=== PATIENT | male | born 1950 | race Caucasian/White ===

== ENCOUNTER → 2017-12-20 | Outpatient (CLI) | payer OTHER | END | disposition home or self-care (01) | LOC: WOUNDCARE 09:38 | DX: I87.313 Chronic venous hypertension (idiopathic) with ulcer of bilateral lower extremity (principal); L97.911 Non-pressure chronic ulcer of unspecified part of right lower leg limited to breakdown of skin; L97.522 Non-pressure chronic ulcer of other part of left foot with fat layer exposed; L97.218 Non-pressure chronic ulcer of right calf with other specified severity; J44.9 Chronic obstructive pulmonary disease, unspecified; Z87.891 Personal history of nicotine dependence; Z85.46 Personal history of malignant neoplasm of prostate ==

== ENCOUNTER → 2017-12-27 | Outpatient (CLI) | payer OTHER | END | disposition home or self-care (01) | LOC: WOUNDCARE 02:47 | DX: I87.313 Chronic venous hypertension (idiopathic) with ulcer of bilateral lower extremity (principal); L97.218 Non-pressure chronic ulcer of right calf with other specified severity; L97.528 Non-pressure chronic ulcer of other part of left foot with other specified severity; J44.9 Chronic obstructive pulmonary disease, unspecified; Z85.46 Personal history of malignant neoplasm of prostate; Z87.891 Personal history of nicotine dependence ==

== ENCOUNTER → 2018-01-10 | Outpatient (CLI) | payer OTHER | END | disposition home or self-care (01) | LOC: WOUNDCARE 01:28 | DX: I87.313 Chronic venous hypertension (idiopathic) with ulcer of bilateral lower extremity (principal); L97.211 Non-pressure chronic ulcer of right calf limited to breakdown of skin; L97.521 Non-pressure chronic ulcer of other part of left foot limited to breakdown of skin; J44.9 Chronic obstructive pulmonary disease, unspecified; Z85.46 Personal history of malignant neoplasm of prostate; Z87.891 Personal history of nicotine dependence ==

== ENCOUNTER → 2018-01-17 | Outpatient (CLI) | payer OTHER | END | disposition home or self-care (01) | LOC: WOUNDCARE 04:27 | DX: I87.313 Chronic venous hypertension (idiopathic) with ulcer of bilateral lower extremity (principal); L97.521 Non-pressure chronic ulcer of other part of left foot limited to breakdown of skin; L97.211 Non-pressure chronic ulcer of right calf limited to breakdown of skin; J44.9 Chronic obstructive pulmonary disease, unspecified; Z85.46 Personal history of malignant neoplasm of prostate; Z87.891 Personal history of nicotine dependence ==

== ENCOUNTER → 2018-01-24 | Outpatient (CLI) | payer OTHER | END | disposition home or self-care (01) | LOC: WOUNDCARE 03:19 | DX: I87.313 Chronic venous hypertension (idiopathic) with ulcer of bilateral lower extremity (principal); L97.218 Non-pressure chronic ulcer of right calf with other specified severity; L97.528 Non-pressure chronic ulcer of other part of left foot with other specified severity; J44.9 Chronic obstructive pulmonary disease, unspecified; Z85.46 Personal history of malignant neoplasm of prostate; Z87.891 Personal history of nicotine dependence ==

== ENCOUNTER → 2018-02-01 | Outpatient (CLI) | payer OTHER | END | disposition home or self-care (01) | LOC: WOUNDCARE 02:21 | DX: I87.313 Chronic venous hypertension (idiopathic) with ulcer of bilateral lower extremity (principal); L97.211 Non-pressure chronic ulcer of right calf limited to breakdown of skin; L97.528 Non-pressure chronic ulcer of other part of left foot with other specified severity; J44.9 Chronic obstructive pulmonary disease, unspecified; Z87.891 Personal history of nicotine dependence; Z85.46 Personal history of malignant neoplasm of prostate ==

== ENCOUNTER → 2018-02-15 | Outpatient (CLI) | payer OTHER | END | disposition home or self-care (01) | LOC: WOUNDCARE 01:46 | DX: I87.313 Chronic venous hypertension (idiopathic) with ulcer of bilateral lower extremity (principal); L97.811 Non-pressure chronic ulcer of other part of right lower leg limited to breakdown of skin; L97.528 Non-pressure chronic ulcer of other part of left foot with other specified severity; J44.9 Chronic obstructive pulmonary disease, unspecified; Z87.891 Personal history of nicotine dependence; Z85.46 Personal history of malignant neoplasm of prostate ==

== ENCOUNTER → 2018-02-22 | Outpatient (CLI) | payer OTHER | END | disposition home or self-care (01) | LOC: WOUNDCARE 05:05 | DX: I87.313 Chronic venous hypertension (idiopathic) with ulcer of bilateral lower extremity (principal); L97.211 Non-pressure chronic ulcer of right calf limited to breakdown of skin; L97.528 Non-pressure chronic ulcer of other part of left foot with other specified severity; J44.9 Chronic obstructive pulmonary disease, unspecified; Z85.46 Personal history of malignant neoplasm of prostate; Z87.891 Personal history of nicotine dependence ==

== ENCOUNTER → 2018-02-27 | Outpatient (CLI) | payer OTHER | END | disposition home or self-care (01) | LOC: WOUNDCARE 00:37 | DX: I87.313 Chronic venous hypertension (idiopathic) with ulcer of bilateral lower extremity (principal); L97.211 Non-pressure chronic ulcer of right calf limited to breakdown of skin; L97.528 Non-pressure chronic ulcer of other part of left foot with other specified severity; J44.9 Chronic obstructive pulmonary disease, unspecified; Z87.891 Personal history of nicotine dependence ==

== ENCOUNTER → 2018-03-06 | Outpatient (CLI) | payer OTHER | END | disposition home or self-care (01) | LOC: WOUNDCARE 02:29 | DX: I87.313 Chronic venous hypertension (idiopathic) with ulcer of bilateral lower extremity (principal); L97.218 Non-pressure chronic ulcer of right calf with other specified severity; L97.528 Non-pressure chronic ulcer of other part of left foot with other specified severity; J44.9 Chronic obstructive pulmonary disease, unspecified; Z85.46 Personal history of malignant neoplasm of prostate; Z87.891 Personal history of nicotine dependence ==

== ENCOUNTER → 2018-03-14 | Outpatient (CLI) | payer OTHER ==
[~2018-03-14] MED LIST: PREDNISONE20 M1 PO; VIBRAMYCIN100 MG PO
== END | disposition home or self-care (01) ==
LOC: WOUNDCARE 02:04
DX: I87.313 Chronic venous hypertension (idiopathic) with ulcer of bilateral lower extremity (principal); L97.218 Non-pressure chronic ulcer of right calf with other specified severity; L97.518 Non-pressure chronic ulcer of other part of right foot with other specified severity; I87.8 Other specified disorders of veins; J44.9 Chronic obstructive pulmonary disease, unspecified; Z85.46 Personal history of malignant neoplasm of prostate; Z87.891 Personal history of nicotine dependence

== ENCOUNTER → 2018-03-21 | Outpatient (CLI) | payer OTHER | END | disposition home or self-care (01) | LOC: WOUNDCARE 02:26 | DX: I87.313 Chronic venous hypertension (idiopathic) with ulcer of bilateral lower extremity (principal); L97.811 Non-pressure chronic ulcer of other part of right lower leg limited to breakdown of skin; L97.528 Non-pressure chronic ulcer of other part of left foot with other specified severity; L97.218 Non-pressure chronic ulcer of right calf with other specified severity; J44.9 Chronic obstructive pulmonary disease, unspecified; Z85.46 Personal history of malignant neoplasm of prostate; Z87.891 Personal history of nicotine dependence ==

== ENCOUNTER → 2018-03-28 | Outpatient (CLI) | payer OTHER | END | disposition home or self-care (01) | LOC: WOUNDCARE 00:41 | DX: I87.313 Chronic venous hypertension (idiopathic) with ulcer of bilateral lower extremity (principal); L97.811 Non-pressure chronic ulcer of other part of right lower leg limited to breakdown of skin; L97.218 Non-pressure chronic ulcer of right calf with other specified severity; L97.528 Non-pressure chronic ulcer of other part of left foot with other specified severity; J44.9 Chronic obstructive pulmonary disease, unspecified; Z85.46 Personal history of malignant neoplasm of prostate; Z87.891 Personal history of nicotine dependence ==

== ENCOUNTER → 2018-04-04 | Outpatient (CLI) | payer OTHER | END | disposition home or self-care (01) | LOC: WOUNDCARE 02:25 | DX: I87.313 Chronic venous hypertension (idiopathic) with ulcer of bilateral lower extremity (principal); L97.811 Non-pressure chronic ulcer of other part of right lower leg limited to breakdown of skin; L97.218 Non-pressure chronic ulcer of right calf with other specified severity; L97.528 Non-pressure chronic ulcer of other part of left foot with other specified severity; J44.9 Chronic obstructive pulmonary disease, unspecified; Z85.46 Personal history of malignant neoplasm of prostate; Z87.891 Personal history of nicotine dependence ==

== ENCOUNTER → 2018-04-18 | Outpatient (CLI) | payer OTHER | END | disposition home or self-care (01) | LOC: WOUNDCARE 04:23 | DX: I87.311 Chronic venous hypertension (idiopathic) with ulcer of right lower extremity (principal); L97.811 Non-pressure chronic ulcer of other part of right lower leg limited to breakdown of skin; L97.218 Non-pressure chronic ulcer of right calf with other specified severity; J44.9 Chronic obstructive pulmonary disease, unspecified; Z85.46 Personal history of malignant neoplasm of prostate; Z87.891 Personal history of nicotine dependence ==

== ENCOUNTER 2018-05-08 10:46 | Emergency (ER) | payer OTHER ==
[~2018-05-08] VITALS: Ht 177.8 cm; Wt 99.8 kg
--- NOTE | ~2018-05-08 | EKG ---
[place], [place] ELECTROCARDIOGRAM REPORT NAME: SHIRA BRENNER JR UNIT #: [id number] ROOM: DOCTOR: EPIPHANY DRAFT REPORT BIRTHDATE: [birth year] [facility] Test Date: 2018-05-08 Test Time: 10:55:53 Pat Name: SHIRA BRENNER Department: Room: Gender: Psychology Instructor: Pilar Martinez : 1950 Requested By: JOSE E STOREY Order Number: [id number] Reading MD: Maribell Schaffer MD Measurements Intervals [place] Rate: 99 P: 22 NJ: 129 QRS: -18 QRSD: 87 T: 17 QT: 313 QTc: 402 Interpretive Statements Sinus tachycardia Ventricular premature complex Borderline left axis deviation No previous ECG available for comparison Electronically Signed On 05-09-2018 15:43:38 PDT by Maribell Schaffer MD CM:EKGRPT:ELECTROCARDIOGRAM REPORT [id number] JOSE E VARGAS DRAFT REPORT JOSE E STOREY M.D.
[2018-05-08 11:13] LABS: HEMATOCRIT 49.7 % (42.0-52.0); HEMOGLOBIN 16.5 g/dl (14.0-18.0); MEAN CELL VOLUME 96.3 fl (80.0-94.0); MEAN CORPUSCULAR HGB CONC 33.2 g/dl (33.0-37.0); MEAN PLATELET VOLUME 12.5 fl (9.6-12.3); PLATELET COUNT AUTOMATED 184 10*3/uL (130-400); RED BLOOD COUNT 5.16 10*6/uL (4.50-5.90); RED CELL DISTRI WIDTH 15.9 % (0-14.5); WHITE BLOOD COUNT 13.1 10*3/uL (4.8-10.8)
[2018-05-08 11:22] LABS: ACT PARTIAL THROMBO TIME 24.7 SECONDS (20.8-31.5)
[2018-05-08 11:34] LABS: ATYPICAL LYMPHS 1 % (0-0); PLATELET SUFFICIENCY NORMAL (NORMAL); TOTAL CELLS COUNTED 100 #CELLS
[2018-05-08 12:15] LABS: ALBUMIN 3.1 gm/dl (3.1-4.5); ALKALINE PHOSPHATASE 108 U/L (45-117); BUN 12 mg/dl (7-24); CHLORIDE 100 mmol/L (98-107); CREATININE 0.75 mg/dL (0.70-1.30); POTASSIUM 3.9 mmol/L (3.5-5.1); SGOT/AST 74 IU/L (3-35); SGPT/ALT 78 U/L (12-78); SODIUM 137 mmol/L (136-145); TOTAL PROTEIN 7.5 gm/dL (6.4-8.2)
[2018-05-08 12:38] LABS: TROPONIN I < 0.015 ng/ml (<0.045)
[2018-05-08] MEDS ORDERED: VIBRAMYCIN100 MG PO (12:59)
[2018-05-08] MEDS ORDERED: PREDNISONE20 M1 PO (12:59)
== END 2018-05-08 13:06 | disposition home or self-care (01) ==
LOC: ED 10:46
PROVIDERS: Emergency Medicine
DX: J44.1 Chronic obstructive pulmonary disease with (acute) exacerbation (principal); I87.2 Venous insufficiency (chronic) (peripheral); Z88.5 Allergy status to narcotic agent

== ENCOUNTER 2019-01-01 19:34 | Inpatient (IN) | payer OTHER, MEDICARE ==
[~2019-01-01] VITALS: Ht 172.7 cm; Wt 113.1 kg
[2019-01-01 19:53] VITALS: BP 123/63
--- NOTE | 2019-01-01 19:55 | NUR ---
PER BRIDGETTE STOREY TO HOLD IV FLUIDS UNTIL CT OF CHEST IS RESULTED.
[2019-01-01 20:03] LABS: BASO % 0.3 % (0.0-1.0); EOS % 0.3 % (1.0-4.0); HEMATOCRIT 50.2 % (42.0-52.0); HEMOGLOBIN 15.2 g/dl (14.0-18.0); LYMPH # 1.5 10*3/uL (1.3-4.4); LYMPH % 13.1 % (27.0-41.0); MEAN CELL VOLUME 99.4 fl (80.0-94.0); MEAN CORPUSCULAR HGB 30.1 pg (27.0-31.0); MEAN CORPUSCULAR HGB CONC 30.3 g/dl (33.0-37.0); MEAN PLATELET VOLUME 11.5 fl (9.6-12.3); MONO # 1.1 10*3/uL (0.1-1.0); MONO % 9.2 % (3.0-9.0); NEUT # 9.1 10*3/uL (2.3-7.9); NEUT % 76.6 % (47.0-73.0); PLATELET COUNT AUTOMATED 212 10*3/uL (130-400); RED BLOOD COUNT 5.05 10*6/uL (4.50-5.90); RED CELL DISTRI WIDTH 15.2 % (0-14.5); WHITE BLOOD COUNT 11.8 10*3/uL (4.8-10.8)
--- NOTE | 2019-01-01 20:13 | NUR ---
FEELING A BIT BETTER AFTER NEBULIZER TREATMENTS.
--- NOTE | 2019-01-01 20:27 | NUR ---
OFF THE FLOOR FOR IMAGING.
[2019-01-01 20:29] LABS: ACT PARTIAL THROMBO TIME 23.6 SECONDS (20.0-32.1)
[2019-01-01 20:35] LABS: ALKALINE PHOSPHATASE 84 U/L (45-117); BUN 16 mg/dl (7-24); CHLORIDE 100 mmol/L (98-107); CREATININE 0.84 mg/dL (0.70-1.30); POTASSIUM 4.8 mmol/L (3.5-5.1); SGOT/AST 70 IU/L (3-35); SGPT/ALT 45 U/L (12-78); SODIUM 139 mmol/L (136-145); TOTAL PROTEIN 7.7 gm/dL (6.4-8.2)
[2019-01-01 20:36] LABS: TROPONIN I 0.024 ng/ml (<0.045)
[2019-01-01 21:14] VITALS: BP 115/52
--- NOTE | 2019-01-01 21:15 | NUR ---
REMAINS SOB WITH LABORED BREATHING, WHICH HAS IMPROVED FROM BASELINE. AUDIBLE EXPIRATORY WHEEZING NOTED AND COUGH HS LOOSENED UO BUT IS STILL CONGESTED AND A BIT MOIST AT TIMES. FACE REMAINS RED BUT COLOR IN HANDS HAS IMPROVED. STILL A TOUCH RED BUT NOT DUSKY. DENIES ANY NEEDS AND IS AWARE OF PLAN FOR ADMISSION.
--- NOTE | 2019-01-01 21:34 | NUR ---
OKAY FOR IV FLUIDS.
--- NOTE | 2019-01-01 21:38 | NUR ---
NRB MASK REMOVED AND PLACED ON 3 L OF OXYGEN VIA N/C PER ORDER OF DR WILSON. PULSE OX IMMEDIATELY DROPPED TO 88% AND CONTINUES TO DROP. NOW AT 85%.
--- NOTE | 2019-01-01 21:45 | NUR ---
DR WILSON IS AT THE BEDSIDE. RESPIRATORY CALLED FOR BIPAP.
--- NOTE | 2019-01-01 21:53 | NUR ---
OXYGEN INCREASED TO 6L VIA N/C WITHOUT MUCH EFFECT. DR WILSON REMAINS AT THE BEDSIDE AND RT WAS GIVEN ORDERS FOR BIPAP.
[2019-01-01 21:57] VITALS: BP 110/62
--- NOTE | 2019-01-01 22:02 | NUR ---
FAMILY AT THE BEDSIDE AND AWARE OF PLAN FOR ICU ADMISSION. TOLERATING BIPAP WELL.
--- NOTE | 2019-01-01 22:18 | NUR ---
SPOKE WITH ICU TO ADVISE OF ETA TO ROOM AND AWAIITNG RESPIRATORY.
--- NOTE | 2019-01-01 22:29 | NUR ---
PHYSICIAN IS AT THE BEDSIDE.
[2019-01-01 22:53] VITALS: BP 156/56
--- NOTE | 2019-01-01 22:53 | NUR ---
A 68, admitted to ICCU, under the services of ELSI Hutton DO with a diagnosis of respiratory failure, hypoxia, copd. Chief complaint is increased shortness of breath for 1.5 weeks resistant to po antibiotics and steroids. Patient arrived via stretcher from ER. Monitor applied. Initial assessment completed. Vital signs taken and recorded. ELSI HUTTON DO notified of admission to the unit. Orders received. See assessment for past medical history, medications and allergies. Patient and/or family oriented to unit. [facility] ICCU visitation policy reviewed. Clothing/patient valuable form completed. HARDEEP JOY
[2019-01-01] MEDS ORDERED: ASPIR 8181 MG PO (23:17)
[2019-01-01] MEDS ORDERED: CRESTOR10 M1 PO (23:17)
[2019-01-01] MEDS ORDERED: MULTI-VITAMIN1 EACH PO (23:18)
[2019-01-01] MEDS ORDERED: ADV 500/50 INH (23:23)
[2019-01-01] MEDS ORDERED: SPIRIVA18 MCG PO (23:24)
[2019-01-01] MEDS ORDERED: CQ10 PO (23:26)
[2019-01-01] MEDS ORDERED: FISH OIL OMEGA1 EAC1 PO (23:28)
[2019-01-01] MEDS ORDERED: PROAIR RESPICL90 MCG INH (23:32)
[2019-01-02] VITALS: BP 131/71
[2019-01-02] MEDS ORDERED: L-METHYL-B6-B11 EACH PO (00:04)
[2019-01-02 00:16] LABS: ABG BASE EXCESS 7.5 mmol/L (-2.0-2.0); ABG HCO3 35.8 mmol/l (22-26); ABG O2 SATURATION 88.7 % (95-97); ARTERIAL BLOOD GAS PCO2 69.7 mmHg (35-45); ARTERIAL BLOOD GAS PH 7.332 (7.35-7.45); ARTERIAL BLOOD GAS PO2 60.6 mmHg (80-90)
--- NOTE | 2019-01-02 00:23 | NUR ---
MEDICATION LIST UP TO DATE. REVIEWED WITH FAMILY.
--- NOTE | 2019-01-02 00:29 | NUR ---
DR. MCCABE NOTIFIED OF CONSULT, ABG'S AND LAB WORK, WELL X-RAYS GIVEN. ORDERS RECEIVED. YANI YU RN
[2019-01-02 04:00] VITALS: BP 132/77
[2019-01-02 06:42] LABS: HEMATOCRIT 47.8 % (42.0-52.0); HEMOGLOBIN 14.5 g/dl (14.0-18.0); MEAN CORPUSCULAR HGB 29.7 pg (27.0-31.0); MEAN CORPUSCULAR HGB CONC 30.3 g/dl (33.0-37.0); MEAN PLATELET VOLUME 12.1 fl (9.6-12.3); PLATELET COUNT AUTOMATED 184 10*3/uL (130-400); RED BLOOD COUNT 4.88 10*6/uL (4.50-5.90); RED CELL DISTRI WIDTH 15.1 % (0-14.5); WHITE BLOOD COUNT 8.3 10*3/uL (4.8-10.8)
[2019-01-02 07:02] LABS: ALBUMIN 2.9 gm/dl (3.1-4.5); ALKALINE PHOSPHATASE 78 U/L (45-117); BUN 15 mg/dl (7-24); CHLORIDE 100 mmol/L (98-107); CHOLESTEROL 159 mg/dL (<200); CREATININE 0.65 mg/dL (0.70-1.30); HDL CHOLESTEROL 79 mg/dl (40-60); LDL CHOLESTEROL 70 mg/dL (9-159); PHOSPHOROUS 3.6 mg/dL (2.5-4.9); POTASSIUM 4.4 mmol/L (3.5-5.1); SGOT/AST 38 IU/L (3-35); SGPT/ALT 40 U/L (12-78); SODIUM 141 mmol/L (136-145); TOTAL PROTEIN 7.4 gm/dL (6.4-8.2); TRIGLYCERIDES 49 mg/dl (<150); VLDL CHOLESTEROL 10 mg/dL (6-40)
[2019-01-02 07:06] LABS: THYROID STIM HORMONE (HS) 0.493 uIU/ml (0.358-4.75)
--- NOTE | 2019-01-02 07:19 | NUR ---
Shift chart check completed.24 HR chart check completed.
[2019-01-02 07:42] LABS: ABG BASE EXCESS 9.3 mmol/L (-2.0-2.0); ABG HCO3 36.6 mmol/l (22-26); ABG O2 SATURATION 92.5 % (95-97); ARTERIAL BLOOD GAS PCO2 61.8 mmHg (35-45); ARTERIAL BLOOD GAS PH 7.39 (7.35-7.45); ARTERIAL BLOOD GAS PO2 59.8 mmHg (80-90)
[2019-01-02 07:51] LABS: VITAMIN D, 25-HYDROXY 30.3 ng/mL (30-100)
--- NOTE | 2019-01-02 07:54 | NUR ---
ON ASSESSMENT PATIENT IS ALERT AND ORIENTED. BIPAP IN PLACE. PT AGREES THAT HE FEELS LIKE HE'S BREATHING EASIER. LOWER LEGS JESUS AND TRACE EDEMA. PT SITTING IN HIGH FOWLERS POSITION. DENIES WANTING ANYTHING TO EAT AT PRESENT.SEE ALL APPROPRIATE INTERVENTIONS.
[2019-01-02 08:00] VITALS: BP 130/80
[2019-01-02 08:22] LABS: TOTAL CELLS COUNTED 100 #CELLS
[2019-01-02 08:23] LABS: PLATELET SUFFICIENCY NORMAL (NORMAL)
--- NOTE | 2019-01-02 08:45 | NUR ---
ABG'S WERE DONE AND CALLED TO DR MCCABE BY RESPIRATORY THERAPY. NO NEW ORDERS. PT HAS DECLINED ANY BREAKFAST FOR NOW.
--- NOTE | 2019-01-02 10:30 | NUR ---
Tape Controlled Machine Stitcher in to talk to patient. Patient states lives at home with his . There are 12 steps in the home. Physician: Stephanie Jiménez [facility]acy: [facility] Home health services: none Patient's level of ADLs: MINIMAL ASSIST Patient has working utilities: yes DME: cane, O2 @ 3L nc, O2 supplier [facility] Follow-up physician's appointment after d/c: will be made by the hospitalist nurse director upon discharge Does patient want to access PORTAL?: no Discharge plan discussed with patient and who is at the bedside. He lives at home with his . He is independent in his ADLs and ambulates with a cane. Discussed home health care services and he denies any home needs at this time. When medically stable he will be discharged to home. will provide transportation on discharge. BERYL CARD
[2019-01-02 12:00] VITALS: BP 130/80
[2019-01-02 12:18] LABS: ABG BASE EXCESS 9.6 mmol/L (-2.0-2.0); ABG HCO3 35.9 mmol/l (22-26); ABG O2 SATURATION 94.1 % (95-97); ARTERIAL BLOOD GAS PH 7.423 (7.35-7.45); ARTERIAL BLOOD GAS PO2 65.3 mmHg (80-90)
--- NOTE | 2019-01-02 12:30 | NUR ---
PATIENT PLACED ON OPTI-FLOW 85%, 55 L/M FLOW. PULSE OX 92%.
--- NOTE | 2019-01-02 13:09 | NUR ---
ABG'S WERE DONE BY RESPIRATORY THERAPY AND CALLED TO DR MCCABE. PT IS CURRENTLY ON 85% OPTIFLOW CANNULA. PT IN NO ACUTE DISTRESS AT THIS TIME.
--- NOTE | 2019-01-02 15:06 | NUR ---
PT HAS TOLERATED OPTIFLOW NASAL CANNUAL WELL, MAINTAINING PULSE OX >92 %. HE WAS ABLE TO EAT HIS LUNCH AND TALK EASILY WITH VISITORS. HE UNDERSTANDS THAT HE IS TO WEAR BIPAP 2HRS ON/2HRS OFF AND ALL NIGHT.
--- NOTE | 2019-01-02 15:15 | NUR ---
PATIENT TAKEN OFF OF OPTI-FLOW, PLACED BACK ON BI-PAP.
--- NOTE | 2019-01-02 15:41 | NUR ---
Patient on Bipap 2hrs on , 2hrs off and all night. OTR to attempt evaluation at a later date. Dayna Juarez OTR/L
[2019-01-02 16:00] VITALS: BP 123/87
--- NOTE | 2019-01-02 16:25 | NUR ---
RESTING EASILY ON BIPAP.
[2019-01-02 20:00] VITALS: BP 123/75
--- NOTE | 2019-01-02 20:53 | NUR ---
PT. RESTING IN BED, AND DAUGHTER AT BEDSIDE. HEP LOCK IN RW, RAN AND LH ASYMPT. LUNGS DIMINISHED WITH EXP. WHEEZES BILAT, CURRENTLY ON BIPAP, PULSE OX 93%. ABDOMEN SOFT, NONDISTENDED AND NORMO, OBESE. BILAT LOWER EXTREMITY EDEMA NOTED. SOB AT REST, INCREASING WITH EXERTION. YANI YU RN
[2019-01-03] VITALS: BP 110/54
[2019-01-03 04:00] VITALS: BP 116/69
[2019-01-03 05:55] LABS: ALBUMIN 2.8 gm/dl (3.1-4.5); ALKALINE PHOSPHATASE 73 U/L (45-117); BUN 28 mg/dl (7-24); CHLORIDE 100 mmol/L (98-107); CREATININE 0.74 mg/dL (0.70-1.30); PHOSPHOROUS 2.9 mg/dL (2.5-4.9); POTASSIUM 4.1 mmol/L (3.5-5.1); SGOT/AST 22 IU/L (3-35); SGPT/ALT 33 U/L (12-78); SODIUM 139 mmol/L (136-145); TOTAL PROTEIN 6.9 gm/dL (6.4-8.2)
[2019-01-03 06:34] LABS: BASO % 0.1 % (0.0-1.0); EOS % 0.3 % (1.0-4.0); HEMOGLOBIN 14.6 g/dl (14.0-18.0); LYMPH # 0.7 10*3/uL (1.3-4.4); LYMPH % 6.2 % (27.0-41.0); MEAN CELL VOLUME 96.3 fl (80.0-94.0); MEAN CORPUSCULAR HGB 29.9 pg (27.0-31.0); MEAN CORPUSCULAR HGB CONC 31.1 g/dl (33.0-37.0); MEAN PLATELET VOLUME 12.8 fl (9.6-12.3); MONO % 8.2 % (3.0-9.0); NEUT # 10.1 10*3/uL (2.3-7.9); NEUT % 84.8 % (47.0-73.0); PLATELET COUNT AUTOMATED 181 10*3/uL (130-400); RED BLOOD COUNT 4.88 10*6/uL (4.50-5.90); RED CELL DISTRI WIDTH 15.1 % (0-14.5); WHITE BLOOD COUNT 11.9 10*3/uL (4.8-10.8)
[2019-01-03 07:40] VITALS: BP 116/72
--- NOTE | 2019-01-03 07:48 | NUR ---
Shift chart check completed.24 HR chart check completed.On assessment patient is alert and oriented, wearing Optiflow nasal cannula at present. Patient uncomfortable in bed. Assisted him to recliner chair, pacing activities. Dyspneic with minimal exertion, but he feels "so much better" up in the chair. See all appropriate interventions.
--- NOTE | 2019-01-03 09:00 | NUR ---
Occupational Therapy evaluation completed in ICCU with full eval to follow. Precautions include fall risk,high flow oxygen need, ICCU,poor activity tolerance, SOB w/ min exertion, high complexity level 35186 via chart review, testing and evaluation. Recommend OT per POC and SNF, if refuses then home with home health SN,OT, PT. Thank you. Dayna Juarez OTR/l
--- NOTE | 2019-01-03 10:03 | NUR ---
BACK IN BED, HAVING ECHO. APOLINAR MCGOVERN AND ELIOT HAVE VISITED.
--- NOTE | 2019-01-03 10:22 | NUR ---
BACK UP TO CHAIR AFTER ECHOCARDIOGRAM COMPLETE. HIS INITIAL PULSE OX 84% WITH THE ACTIVITY. RECOVERS WITH REST TO 95%.
[2019-01-03 11:06] VITALS: BP 123/65
--- NOTE | 2019-01-03 14:20 | NUR ---
PHYSICAL THERAPY Pt on BIPAP and sleeping peacefully. Unable to be woken. Will attempt at later time. Thank you Aminah Beasley, PT, DPT
--- NOTE | 2019-01-03 14:58 | NUR ---
PT DOZING WITH BIPAP ON WHEN VISITORS AREN'T HERE.
--- NOTE | 2019-01-03 15:25 | NUR ---
PT. OFF BIPAP AND PLACED ON COMFORT [place]. FIO2 75% FLOW 55L SPO2 94%. TOLERATING WELL.
--- NOTE | 2019-01-03 15:55 | NUR ---
OUT OF BED TO CHAIR. RECOVERS FASTER THAN EARLIER.
[2019-01-03 16:00] VITALS: BP 144/78
[2019-01-03 20:00] VITALS: BP 115/66
[2019-01-04] VITALS: BP 129/73
[2019-01-04 04:00] VITALS: BP 136/75
[2019-01-04 05:16] LABS: BUN 31 mg/dl (7-24); CHLORIDE 103 mmol/L (98-107); CREATININE 0.63 mg/dL (0.70-1.30); SODIUM 139 mmol/L (136-145)
[2019-01-04 06:02] LABS: BASO % 0.1 % (0.0-1.0); HEMATOCRIT 46.6 % (42.0-52.0); HEMOGLOBIN 14.7 g/dl (14.0-18.0); LYMPH # 0.7 10*3/uL (1.3-4.4); LYMPH % 5.3 % (27.0-41.0); MEAN CELL VOLUME 94.3 fl (80.0-94.0); MEAN CORPUSCULAR HGB 29.8 pg (27.0-31.0); MEAN CORPUSCULAR HGB CONC 31.5 g/dl (33.0-37.0); MONO % 7.5 % (3.0-9.0); NEUT # 11.6 10*3/uL (2.3-7.9); NEUT % 86.6 % (47.0-73.0); PLATELET COUNT AUTOMATED 198 10*3/uL (130-400); RED BLOOD COUNT 4.94 10*6/uL (4.50-5.90); RED CELL DISTRI WIDTH 15.1 % (0-14.5); WHITE BLOOD COUNT 13.3 10*3/uL (4.8-10.8)
[2019-01-04 07:02] LABS: ABG BASE EXCESS 6.5 mmol/L (-2.0-2.0); ABG HCO3 31.9 mmol/l (22-26); ABG O2 SATURATION 95.2 % (95-97); ARTERIAL BLOOD GAS PCO2 48.6 mmHg (35-45); ARTERIAL BLOOD GAS PH 7.431 (7.35-7.45); ARTERIAL BLOOD GAS PO2 74.9 mmHg (80-90)
--- NOTE | 2019-01-04 07:22 | NUR ---
PT ON BIPAP ,VT 1927, LEAK 112, RR 15, SPO2 94%, HR 83, ABG'S DRAWEN, TOOK PT OFF AND PLACED ON OPTIFLOW 55L/75%
[2019-01-04 08:00] VITALS: BP 125/88
--- NOTE | 2019-01-04 09:00 | NUR ---
Regional Flatbed Truck Driver in to see patient. No new needs or request at this time. He denies any home needs. at bedside. When medically stable he will be discharged to home.
[2019-01-04 12:00] VITALS: BP 119/55
--- NOTE | 2019-01-04 14:00 | NUR ---
PT IN TO SEE PT TWICE TODAY
--- NOTE | 2019-01-04 14:08 | NUR ---
OT NOTE Pt was seen this P.M. 1:1 for 19 minute OT session. Upon arrival pt was sitting upright in the recliner. Pt identified by name and and had no complaints at this time. Pt presented to therapy on high flow O2 which he remained on throughout the entire session. Pt completed multiple sit to stand transfers from chair level with Renetta and use of straight cane for UE support. Challenged pt's static standing tolerance needed for increased I in self care tasks and functional transfers, pt was able to tolerate aprox 2-3 minutes at at a time before sitting due to fatigue and feeling SOB. Pt was educated on and provided hand outs for breathing techniques throughout and energy conservation techniques. Pt verbalized understanding and all questions were addressed. Pt was left sitting uproght in the recliner with call light in hand, tray table in place, and ICCU nurse notified. Continue with POC as able. SUDHIR Caruso/Alessia
--- NOTE | 2019-01-04 15:14 | NUR ---
PHYSICAL THERAPY Doug completed full details to follow moderate complexity level-05075. PT to work on transfers, strengthening and ambuation stairs if/as appropriate. Would benefit from further rehab/SNF at discharge as pt with signif resp/deconditioned status however he states he will go home and consider HH. Leah Schafer PT
[2019-01-04 16:00] VITALS: BP 138/62
--- NOTE | 2019-01-04 16:15 | NUR ---
FAMILY HAS BEEN BRINGING FOOD IN FOR PT, APPETITE GOOD
--- NOTE | 2019-01-04 18:00 | NUR ---
WASHED PT UP AT BEDSIDE
--- NOTE | 2019-01-04 18:22 | NUR ---
IV TO LEFT HAND DISLODGED AND REMOVED
[2019-01-04 20:00] VITALS: BP 125/60
--- NOTE | 2019-01-04 20:00 | NUR ---
PATIENT UP IN CHAIR, WITH A BEDSIDE. PATIENT DOES GET SHORT OF BREATH WITH MIMINAL MOVEMENT, INCREASED LABOR BREATHING WHEN UP OUT OF CHAIR. PATIENT DENIES ANY PAIN AT THIS TIME. PATIENT LEFT WITH CALL LIGHT IN REACH.
--- NOTE | 2019-01-04 21:20 | NUR ---
PATIENT REQUESTED TO HAVE BIPAP PUT ON, ASSISTED PATIENT TO BED. PATIENT SHORT OF BREATH, SLIGHTLY LABORED WHEN UP TO WALK TO BED. PATIENT MADE COMFORTABLE IN BED, BIPAP PLACED, PATIENT HAS CALL LIGHT.
[2019-01-05] VITALS: BP 115/56
--- NOTE | 2019-01-05 01:42 | NUR ---
PATIENT RESTING ON BIPAP, NO SIGNS OF DISTRESS. WILL CONTINUE TO MONITOR.
--- NOTE | 2019-01-05 02:31 | NUR ---
24 HR chart check completed.
[2019-01-05 04:00] VITALS: BP 120/60
[2019-01-05 04:49] LABS: BASO % 0.1 % (0.0-1.0); EOS % 0.1 % (1.0-4.0); HEMATOCRIT 45.5 % (42.0-52.0); HEMOGLOBIN 14.5 g/dl (14.0-18.0); LYMPH # 0.6 10*3/uL (1.3-4.4); LYMPH % 4.5 % (27.0-41.0); MEAN CELL VOLUME 93.4 fl (80.0-94.0); MEAN CORPUSCULAR HGB 29.8 pg (27.0-31.0); MEAN CORPUSCULAR HGB CONC 31.9 g/dl (33.0-37.0); MEAN PLATELET VOLUME 11.7 fl (9.6-12.3); MONO % 7.6 % (3.0-9.0); NEUT # 11.5 10*3/uL (2.3-7.9); NEUT % 87.1 % (47.0-73.0); PLATELET COUNT AUTOMATED 172 10*3/uL (130-400); RED BLOOD COUNT 4.87 10*6/uL (4.50-5.90); RED CELL DISTRI WIDTH 14.8 % (0-14.5); WHITE BLOOD COUNT 13.2 10*3/uL (4.8-10.8)
[2019-01-05 05:04] LABS: BUN 24 mg/dl (7-24); CHLORIDE 104 mmol/L (98-107); CREATININE 0.63 mg/dL (0.70-1.30); PHOSPHOROUS 3.2 mg/dL (2.5-4.9); POTASSIUM 4.5 mmol/L (3.5-5.1); SODIUM 139 mmol/L (136-145)
[2019-01-05 07:04] LABS: ABG BASE EXCESS 6.7 mmol/L (-2.0-2.0); ABG HCO3 30.9 mmol/l (22-26); ABG O2 SATURATION 94.4 % (95-97); ARTERIAL BLOOD GAS PCO2 43.3 mmHg (35-45); ARTERIAL BLOOD GAS PH 7.466 (7.35-7.45); ARTERIAL BLOOD GAS PO2 67.7 mmHg (80-90)
--- NOTE | 2019-01-05 07:15 | NUR ---
PT. OFF BIPAP/ PLACED ON OPTIFLOW AT 60% FIO2 WITH 50 LPM FLOW. SPO2 92% RR 20
[2019-01-05 07:31] VITALS: BP 130/64
--- NOTE | 2019-01-05 07:45 | NUR ---
UP TO RECLINER WITH MINIMAL ASSIST IV SITES X 2 RIGHT ARM ARE ASYMPT PT IS WAITING FOR TO BRING BREAKFAST
--- NOTE | 2019-01-05 08:10 | NUR ---
PHYSICAL THERAPY Patient seen this am 1;1 for therapy visit and was sitting up in bedside chair with continuous Hi Flow O2 upon therapist arrival. Patient resting HR 92 bpm as patient voices no new c/o's at this time. Patient performed several sit to stand transfers from low chair surface, CGA, demonstrating very slow rise, tolerating approx 2 minutes static stand each trial. Patient needed seated rest break between standing attempts secondary to both increased fatigue and increased SOB. Patient instructed on purse lip breathing technique and recovered from HR 101 bpm to 88 bpm within 30 seconds. Patient returned to bedside chair and remained with call light, tray table and telephone. Will continue per POC as tolerated, total treatment time 14 minutes. Theo Montes, SUPERVISOR ESTIMATOR AND DRAFTER
--- NOTE | 2019-01-05 08:25 | NUR ---
OT NOTE Pt was seen this A.M. 1:1 for 25 minute OT session. Upon arrival pt was sitting upright in the recliner. Pt identified by name and and had no complaints at this time. Pt presented to therapy with high flow O2 which he remained on throughout the entire session. Pt completed multiple sit to stand transfers from chair level with Renetta. Challenged pt's static standing tolerance needed for increased I in self care tasks and functional transfers. Pt was able to tolerate aprox 2 minutes at a time before sitting due to fatigue. Pt was provided other energy conservation with ADL task handout and educated on. Pt verbalized understanding. Pt was then educated on lower body bathing with use of long handled sponge and food cooking machine operator for drying LE's. Also educated pt on dressing of lower body and pt reported that he had a sock aid, food cooking machine operator, and shoe horn at home that he uses. Pt was able to complete with SBA. Pt was left sitting upright in the recliner with call light in hand, tray table in place, and phone in reach. Continue with POC as able. SUDHIR Caruso/Alessia
--- NOTE | 2019-01-05 09:50 | NUR ---
pharmacy aware of vant 27.8
--- NOTE | 2019-01-05 11:01 | NUR ---
Adult Education Instructor in to see patient. at bedside. Discussed LTAC on discharge from the hospital and he and his both adamantly refuse. She states when he had hip surgery 3 days post op he was walking up the 12 steps outside. There are hand rails on both sides. She states if she has to she can drive up their neighbors driveway to the back of the house. would like to see if he would be able to get smaller portable O2 tanks as he has the big tank on wheels currently. Spoke to Zoya Lee and Manish at [facility] regarding options for a smaller tank. Zoya Lee states the reason he has the tank he has is because he had a smaller tank but Dr. De La Cruz doesn't want him on the pulse O2. He has to be on the continuous. Patient and notified.
--- NOTE | 2019-01-05 11:10 | NUR ---
FIO2 DECREASED TO 55% ON OPTIFLOW- SPO2 91%
--- NOTE | 2019-01-05 11:13 | NUR ---
BACK TO BED, TOLERATED WELL
[2019-01-05 12:00] VITALS: BP 125/62
--- NOTE | 2019-01-05 13:35 | NUR ---
OT NOTE Pt was seen this P.M. 1:1 for second OT session consisting of 12 minutes. Upon arrival pt was supine in bed. Pt identified by name and and had no complaints at this time. Pt presented to therapy with high flow O2 which he remained on throughout the entire session. Pt transferred supine to sit EOB with SBA, however throughout pt was educated on energy conservation techniques to decrease risk of becoming SOB. Sit to stand completed from bed level with CGA followed by standing pivot from EOB to the recliner with CGA. Then challenged pt's static standing tolerance for enhanced endurance and pt was able to tolerate aprox 3 minutes at a time before sitting due to fatigue and feeling SOB. Pt was left sitting upright in the recliner with call light in hand, tray table in place, and ICCU nurse notified. Continue with POC as able. SUDHIR Caruso/Alessia
--- NOTE | 2019-01-05 13:40 | NUR ---
PHYSICAL THERAPY Patient seen this pm 1:1 for therapy visit and was resting supine in bed upon therapist arrival. Patient identified by name / and presented with continuous High Flow O2. Patient was pleasant this afternoon transfering supine to sit with MIN A and then sit to stand CGA. Patient completed SPT to bedside chair CGA and was instructed on B LE therex to increase LE strength / ROM. Patient performed seated B LE therex, all planes, x 15 reps each without c/o. Patient remained in bedside chair with call light, tray table and cell phone. Will continue per POC as tolerated, total treatment time 16 minutes. Theo Montes, WAFER SUBSTRATE TESTER
--- NOTE | 2019-01-05 15:15 | NUR ---
PT. PLACED ON 6L HFNC. SPO2 92%. RR 20 HR 82.
--- NOTE | 2019-01-05 15:18 | NUR ---
PHYSICAL THERAPY CO-SIGN I approve of the Physical Therapy notes written above. Leah Schafer PT
--- NOTE | 2019-01-05 15:21 | NUR ---
OCCUPATIONAL THERAPY CO-SIGN I approve of the Occupational Therapy notes written above. LIZ REYES OTR/Alessia
[2019-01-05 16:00] VITALS: BP 126/69
--- NOTE | 2019-01-05 18:21 | NUR ---
TOLERATING HIGH FLOW AT 6 L, DID MOMENTARILY DROP AT 81 % AFTER STANDING TO USE URINAL, RECOVERED TO 89 % WITHIN 5 MINUTES
[2019-01-05 20:00] VITALS: BP 114/57
--- NOTE | 2019-01-05 22:00 | NUR ---
PATIENT REQUESTED TO GO BACK TO BED AND BE PLACED ON THE BIPAP. PATIENT EXTREMELY SHORT OF BREATH, LABORED BREATHING. ONCE IN BED, PATIENT STATED HE NEEDED A BREAK, WAITING A SHORT TIME BEFOR BEING PLACED ON BIPAP. PATIENT PULSE OX DROPPED TO 82-83% WITH EXERTION. ONCE PATIENT WAS RESTING IN BED, PULSE OX BACK UP TO 92%. PATIENT LEFT WITH CALL LIGHT IN REACH.
[2019-01-06] VITALS: BP 131/77
[2019-01-06 04:00] VITALS: BP 138/77
--- NOTE | 2019-01-06 04:47 | NUR ---
PATIENT AWOKE AND WANTED TO GET UP IN CHAIR AND OFF BIPAP. PATIENT DID WELL WEARING THROUGHOUT THE NIGHT. STATED HE WAS FEELING GOOD. MOVED TO CHAIR WITH CALL LIGHT.
[2019-01-06 05:41] LABS: ALBUMIN 2.7 gm/dl (3.1-4.5); ALKALINE PHOSPHATASE 72 U/L (45-117); BUN 23 mg/dl (7-24); CHLORIDE 103 mmol/L (98-107); CREATININE 0.83 mg/dL (0.70-1.30); POTASSIUM 4.4 mmol/L (3.5-5.1); SGOT/AST 43 IU/L (3-35); SGPT/ALT 55 U/L (12-78); SODIUM 139 mmol/L (136-145); TOTAL PROTEIN 6.4 gm/dL (6.4-8.2)
[2019-01-06 06:26] LABS: BASO % 0.1 % (0.0-1.0); HEMATOCRIT 47.2 % (42.0-52.0); HEMOGLOBIN 15.1 g/dl (14.0-18.0); LYMPH # 0.5 10*3/uL (1.3-4.4); LYMPH % 4.1 % (27.0-41.0); MEAN CELL VOLUME 94.4 fl (80.0-94.0); MEAN CORPUSCULAR HGB 30.2 pg (27.0-31.0); MONO # 0.9 10*3/uL (0.1-1.0); MONO % 6.7 % (3.0-9.0); NEUT # 11.3 10*3/uL (2.3-7.9); NEUT % 88.3 % (47.0-73.0); PLATELET COUNT AUTOMATED 177 10*3/uL (130-400); RED CELL DISTRI WIDTH 14.9 % (0-14.5); WHITE BLOOD COUNT 12.8 10*3/uL (4.8-10.8)
[2019-01-06 08:00] VITALS: BP 128/65
--- NOTE | 2019-01-06 08:07 | NUR ---
Awake and alert. To RAD for CXR. Up in chair on return. self care . Richi complexion. Declines to order breakfast. states spouse will bring something from home.
[2019-01-06 11:57] VITALS: BP 122/59
--- NOTE | 2019-01-06 12:09 | NUR ---
Spouse in to visit. Update given.
[2019-01-06 16:00] VITALS: BP 128/61
--- NOTE | 2019-01-06 18:26 | NUR ---
sPOUSE IN TO VISIT. SPONGE BATH GIVEN AT BEDSIDE PER SPOUSE.
[2019-01-06 20:00] VITALS: BP 117/62
[2019-01-07] VITALS: BP 128/80
[2019-01-07 04:00] VITALS: BP 122/80
[2019-01-07 05:57] LABS: ALBUMIN 2.7 gm/dl (3.1-4.5); ALKALINE PHOSPHATASE 69 U/L (45-117); BUN 19 mg/dl (7-24); CHLORIDE 102 mmol/L (98-107); CREATININE 0.62 mg/dL (0.70-1.30); POTASSIUM 4.2 mmol/L (3.5-5.1); SGOT/AST 56 IU/L (3-35); SGPT/ALT 67 U/L (12-78); SODIUM 138 mmol/L (136-145); TOTAL PROTEIN 6.3 gm/dL (6.4-8.2)
[2019-01-07 06:27] LABS: BASO % 0.1 % (0.0-1.0); HEMATOCRIT 47.4 % (42.0-52.0); LYMPH # 0.5 10*3/uL (1.3-4.4); LYMPH % 3.8 % (27.0-41.0); MEAN CELL VOLUME 94.4 fl (80.0-94.0); MEAN CORPUSCULAR HGB 29.9 pg (27.0-31.0); MEAN CORPUSCULAR HGB CONC 31.6 g/dl (33.0-37.0); MONO % 7.5 % (3.0-9.0); NEUT # 11.9 10*3/uL (2.3-7.9); NEUT % 87.9 % (47.0-73.0); PLATELET COUNT AUTOMATED 167 10*3/uL (130-400); RED BLOOD COUNT 5.02 10*6/uL (4.50-5.90); RED CELL DISTRI WIDTH 14.8 % (0-14.5); WHITE BLOOD COUNT 13.5 10*3/uL (4.8-10.8)
[2019-01-07 08:00] VITALS: BP 130/85
[2019-01-07 12:00] VITALS: BP 120/70
[2019-01-07 16:00] VITALS: BP 131/97
--- NOTE | 2019-01-07 16:35 | NUR ---
DR MCCABE HAS VISITED.
[2019-01-07 20:00] VITALS: BP 114/64
--- NOTE | 2019-01-07 20:10 | NUR ---
PT. SITTING IN RECLINER, DAUGHTER AND AT BESIDE. HEP LOCK IN RFA ASYMPT. LUNGS DIMINISHED BILAT, PULSE OX 91% ON 5L HF 02. ABDOMEN SOFTLY DISTENDED, OBESE, NORMO. BLE EDEMA AND DISCOLORATION DUE TO PVD. YANI YU RN
--- NOTE | 2019-01-07 22:49 | NUR ---
PT. GIVEN RESTORIL PRIOR TO WEARING BIPAP TO ASSIST WITH SLEEP (PER PT REQUESET). YANI YU RN
--- NOTE | 2019-01-07 23:08 | NUR ---
RESTORIL GIVEN AT 2228 ORDERED, PT. CURRENTLY RESTING WITH EYES CLOSED ON BIPAP.
--- NOTE | 2019-01-07 23:47 | NUR ---
PT. SLEEPING, RESTORIL EFFECTIVE.
[2019-01-08] VITALS: BP 105/65
[2019-01-08 04:00] VITALS: BP 115/63
[2019-01-08 05:11] LABS: ALBUMIN 2.6 gm/dl (3.1-4.5); ALKALINE PHOSPHATASE 63 U/L (45-117); BUN 19 mg/dl (7-24); CHLORIDE 101 mmol/L (98-107); CREATININE 0.65 mg/dL (0.70-1.30); POTASSIUM 4.1 mmol/L (3.5-5.1); SGOT/AST 45 IU/L (3-35); SGPT/ALT 71 U/L (12-78); SODIUM 138 mmol/L (136-145); TOTAL PROTEIN 5.8 gm/dL (6.4-8.2)
[2019-01-08 05:58] LABS: HEMOGLOBIN 14.3 g/dl (14.0-18.0); MEAN CELL VOLUME 92.4 fl (80.0-94.0); MEAN CORPUSCULAR HGB 29.4 pg (27.0-31.0); MEAN CORPUSCULAR HGB CONC 31.8 g/dl (33.0-37.0); MEAN PLATELET VOLUME 12.4 fl (9.6-12.3); PLATELET COUNT AUTOMATED 155 10*3/uL (130-400); RED BLOOD COUNT 4.87 10*6/uL (4.50-5.90); RED CELL DISTRI WIDTH 14.7 % (0-14.5); WHITE BLOOD COUNT 13.9 10*3/uL (4.8-10.8)
[2019-01-08 06:55] LABS: TOTAL CELLS COUNTED 100 #CELLS
[2019-01-08 06:56] LABS: PLATELET SUFFICIENCY NORMAL (NORMAL)
--- NOTE | 2019-01-08 07:35 | NUR ---
OFF BIPAP ON HIGH FLOW NASAL CANNULA AT 4L/M SAT 92-93%.
[2019-01-08 08:00] VITALS: BP 129/73
--- NOTE | 2019-01-08 09:00 | NUR ---
Buffer Automatic in to see patient. He is sitting up in his bedside chair without distress noted. at the bedside. O2 @ 4L nc. and patient state Dr. De La Cruz said if he was to walk today and keep his sats up he would be able to be discharged to home. Discussed home needs and both deny any home needs at this time. When medically stable he will be discharged to home.
--- NOTE | 2019-01-08 09:05 | NUR ---
PHYSICAL THERAPY Patient seen this am 1:1 for therapy visit and was sitting up in bedside chair with continuous O2-4L via NC upon therapist arrival. Patient identified by name / as his was present during entire treatment session. Patient recorded resting SpO2 91% prior to transfering sit to stand, SBA, demonstrating slow, steady rise. Patient ambulated with use of st cane, 15'x 2 to bathroom, SBA, completing toilet transfer with CGA. Patient fatigues quickly, needing v/c for purse lip breathing technique, SpO2 drops to 86%. Following approx 2 minute seated rest, patient able to return to bedside chair, SpO2 89% and remained in chair with call light, tray table and cell phone. SpO2 returned to 93% following 30 second seated rest and will continue per POC as tolerated. Total treatment time 17 minutes. Theo Montes, ENLISTED ADVISOR
--- NOTE | 2019-01-08 09:25 | NUR ---
OT NOTE Pt was seen this A.M. 1:1 for 20 minute OT session. Upon arrival pt was sitting upright in the recliner. Pt identified by name and and had no complaints at this time. Pt presented to therapy with continuous 4L-O2 via NC which he remained on throughout the entire session. At rest pt's SpO2 was 91%. Pt completed sit to stand from chair level with CGA and use of straight cane for UE support. Functional mobility was then completed into the bathroom with CGA and use of straight cane with constant verbal prompts for slowing down and breathing techniques. Pt transferred on to the standard commode with CGA for safety. Pt's SpO2 had dropped to 86% which pt was educated to remain seated on the commode for a rest break, breathing techniques, and improving upright posture. After a 2 minute seated rest pt's SpO2 raised back to 91%. Functional mobility was then completed back to the recliner with CGA and use of straight cane. THroughout transfer pt's Spo2 dropped to 88% and within 30 seconds had raised back up to 91%. Pt was left sitting upright in the recliner with call light in hand, tray table in place, at bedside, and ICCU nurse notified. Continue with POC as able. SUDHIR Caruso/Alessia
--- NOTE | 2019-01-08 10:30 | NUR ---
WALKED BY RESP AROUND THE ICCU, ON 4LNC, POS DESAT TO 81 % DR MCCABE UPDATED BY RESP
--- NOTE | 2019-01-08 10:45 | NUR ---
PT AMBULATED ON 4L/M NC AROUND ICU. SAT % TEETERING BETWEEN 86-88% FOR MORE THAN HALF OF THE [place]. SAT % STARTED DROPPING TO 81%, 3/4 AROUND [place]. O2 TO 6L/M. PT BACK TO ROOM. SAT TO 92% DURING RECOVERY. PT ASSISSTING WITH WALK. DR. MCCABE CALLED WITH RESULTS. DR. MCCABE STATING PT IS NOT READY TO GO HOME TODAY. RN INFORMED.
--- NOTE | 2019-01-08 11:26 | NUR ---
TRANSFERRED TO 409 VIA RECLINER WITH PT AND AWARE OF TRANSFER
--- NOTE | 2019-01-08 11:29 | NUR ---
[facility]. ASSESSMENT COMPLETE.SOB AT REST NOTED ON 4LNC,SPO2 90%,RR 22.PT DENIES DISTRESS. BP 102/62,HR 82,AND AFEBRILE. ORIENTED TO ROOM. PT CURRENTLY UP IN CHAIR, AT BEDSIDE.CALL LIGHT IN REACH.
--- NOTE | 2019-01-08 11:35 | NUR ---
RESIDENT UPDATED ON PT FAILING HIS WALKING POX OX AND PTS REQUEST FOR RESTORIL 15 QHS
[2019-01-08 12:00] VITALS: BP 102/62
--- NOTE | 2019-01-08 12:36 | NUR ---
OT NOTE Pt was seen this P.M. 1:1 for second OT session consisting of 15 minutes. Upon arrival pt was sitting upright in the recliner. Pt identified by name and and had no complaints at this time. Pt presented to therapy with continuous 4L-O2 via NC which he remained on throughout the entire session. At rest pt's SpO2 was 92%. Sit to stand completed from the recliner followed by functional mobility into the bathroom and back with CGA and use of straight cane for UE support. Pt's SpO2 dropped to 79% and after a 2 minute recovery pt's SpO2 raised to 91%. Pt was educated on slowing down due to being impulsive and breathing techniques. Pt presented with poor carry over. Pt was left sitting uproght in the recliner with call light in hand, tray table in place, and at bedside. Continue with POC as able. SUDHIR Caruso/Alessia
--- NOTE | 2019-01-08 12:40 | NUR ---
PHYSICAL THERAPY Patient seen this pm 1;1 for therapy visit and was sitting up in bedside chair with continuos O2-4L via MT. Patient identified by name / as his was present this afternoon to observe therapy. Patient reports no new c/o's and recorded resting SpO2 92%. Patient transfers sit to stand SBA and ambulates with use of st cane, SBA, ad mike in room with extended O2 hose, 50'x 1, demonstrating very slow, cautious gait pattern. Patient demonstrated increased SOB, increased fatigue and returned to bedside chair for seated rest break with SpO2 dropping to 79%. Patient instructed on purse lip breathing technique as SpO2 returned to 91% following approx 2 minute seated rest. Patient amublated second trial, st cane, SBA, 25'x 1, recording SpO2 84% and returned to bedside chair. Patient once again needed approx 2 minute seated rest with SpO2 returning to 91%. Patient remained in bedside chair with call light and cell phone and advised to ask for staff assist for all standing activities. Will continue per POC as tolerated, total treatment time 18 minutes. Theo Montes, SERVICE ATTENDANT
[2019-01-08 16:00] VITALS: BP 134/70
[2019-01-08 20:00] VITALS: BP 133/63
[2019-01-09] VITALS: BP 120/71
--- NOTE | 2019-01-09 02:45 | NUR ---
Patient resting quietly with no c/o discomfort. Respirations easy and regular. Vital signs stable. No overt distress. KING SANCHEZ
[2019-01-09 08:00] VITALS: BP 114/72
--- NOTE | 2019-01-09 09:08 | NUR ---
NOTIFIED RT STEFANY THAT DR MCCABE ROUNDED AND WANTED PT WALKED BY RT TO ASSESS PT SPO2 FOR D/C.
--- NOTE | 2019-01-09 09:15 | NUR ---
Licensed Funeral Director And Embalmer in to see patient. He is currently ambulating with respiratory. Discussed discharge planning with who is sitting at his bedside. Discussed home health care services and she denies any home needs. She is awaiting to see how his sats are to if he could be discharged today to home. When patient came back to room respiratory stated his sats were about 89-90% on 4L nc. When medically stable he will be discharged to home.
--- NOTE | 2019-01-09 09:20 | NUR ---
PHYSICAL THERAPY Patient seen this am 1:1 for therapy visit and was sitting up in bedside chair, with his present upon therapist arrival. Patient identified by name / and presented with continuous O2-4L via NC. Patient baseline SpO2 92% as patient transfers sit to stand from low chair surface, SBA, and ambulates with use of st cane, 75'x 1, demonstrating slow kareen, mild fatigue and increased SOB > 50 feet. Patient needed standing rest break < 1 minute with v/c for purse lip breathing technique, SpO2 86%. Patient improved SpO2 to 90% then continued gait ex additonal 50'x 1, st cane, SBA, upon return to bedside chair. Patient O2 avraged between 88-90% during return and following seated rest break remained at 93%. Patient remained in bedside chair with call light, tray table and cell phone. Will continue per POC as tolerated, total treatment time 17 minutes. Theo Montes, SOCIAL MEDIA ASSISTANT
--- NOTE | 2019-01-09 09:40 | NUR ---
NOTIFIED DR GALLO ,PER DR MCCABE'S REQUEST, THAT PT HAD 6 MIN WALK WITH RT AND HE WAS CLEARED FOR D/C.
--- NOTE | 2019-01-09 09:40 | NUR ---
PT. SAT ON 3.5 LITERS AT REST 94%. PT. AMBULATED IN THE [place]AR[place] ON 2 LITERS SAT WAS 86% INCREASED TO 3 SAT INCREASING TO 88%. INCREASED TO 4 LITERS INCREASING TO 90%. CONTINUED WALK WITH PT. ON 4 LITERS, SAT MAINTAINING 89 TO 90%. PT. RETURNED TO ROOM, RESTING ON 3 LITERS O2, SAT 93, HEART RATE 99. RN AND DR. MCCABE NOTIFIED
[2019-01-09] MEDS ORDERED: PREDNISONE10 MG PO (12:13)
[2019-01-09] MEDS ORDERED: LEVAQUIN750 M1 PO (12:13)
[2019-01-09] MEDS ORDERED: TEMAZEPAM15 M1 PO (12:14)
[2019-01-09] MEDS ORDERED: OXYGEN NAS (12:18)
--- NOTE | 2019-01-09 12:51 | NUR ---
SPOKE WITH SYDNI,HOME HEALTH AIDE. SYDNI IS TO BRING PATIENT'S TEETH AND ADDRESS BOOK TO PATIENT. [phone] .
--- NOTE | 2019-01-09 13:05 | NUR ---
Discharge instructions reviewed with patient/family. Patient receptive and verbalizes understanding. Follow-up care arranged. Written instructions given to patient/family. SHIRA RADER
--- NOTE | 2019-01-10 07:17 | NUR ---
OCCUPATIONAL THERAPY CO-SIGN I approve of the Occupational Therapy notes written above. LIZ REYES OTR/Alessia
--- NOTE | 2019-01-10 07:40 | NUR ---
PHYSICAL THERAPY CO-SIGN I approve of the Physical Therapy notes written above. Leah Schafer PT
== END 2019-01-09 13:11 | disposition home or self-care (01) | DRG 871 ==
LOC: ED 19:34 → 4E 22:09 → EDHOLD 22:09 → ICCU 22:09 → 4E 01-08 11:34
PROVIDERS: Emergency Medicine; Internal Medicine; Internal Medicine Critical Care Medicine; ADMIT Family Medicine
PROC: 5A09357 Assistance with Respiratory Ventilation, Less than 24 Consecutive Hours, Continuous Positive Airway Pressure (ICD-10-PCS; principal; 2019-01-01)
PROC: 5A09357 Assistance with Respiratory Ventilation, Less than 24 Consecutive Hours, Continuous Positive Airway Pressure (ICD-10-PCS; 2019-01-02)
PROC: 5A09357 Assistance with Respiratory Ventilation, Less than 24 Consecutive Hours, Continuous Positive Airway Pressure (ICD-10-PCS; 2019-01-04)
PROC: 5A09357 Assistance with Respiratory Ventilation, Less than 24 Consecutive Hours, Continuous Positive Airway Pressure (ICD-10-PCS; 2019-01-05)
PROC: 5A09357 Assistance with Respiratory Ventilation, Less than 24 Consecutive Hours, Continuous Positive Airway Pressure (ICD-10-PCS; 2019-01-06)
PROC: 5A09357 Assistance with Respiratory Ventilation, Less than 24 Consecutive Hours, Continuous Positive Airway Pressure (ICD-10-PCS; 2019-01-07)
PROC: 5A09357 Assistance with Respiratory Ventilation, Less than 24 Consecutive Hours, Continuous Positive Airway Pressure (ICD-10-PCS; 2019-01-08)
PROC: 5A09357 Assistance with Respiratory Ventilation, Less than 24 Consecutive Hours, Continuous Positive Airway Pressure (ICD-10-PCS; 2019-01-09)
DX: A41.9 Sepsis, unspecified organism (principal); J18.9 Pneumonia, unspecified organism; J96.22 Acute and chronic respiratory failure with hypercapnia; J96.21 Acute and chronic respiratory failure with hypoxia; J44.1 Chronic obstructive pulmonary disease with (acute) exacerbation; E44.0 Moderate protein-calorie malnutrition; J44.0 Chronic obstructive pulmonary disease with (acute) lower respiratory infection; E87.4 Mixed disorder of acid-base balance; R65.20 Severe sepsis without septic shock; M19.90 Unspecified osteoarthritis, unspecified site; I73.9 Peripheral vascular disease, unspecified; Z96.641 Presence of right artificial hip joint; J45.50 Severe persistent asthma, uncomplicated; J20.9 Acute bronchitis, unspecified; R74.0 Nonspecific elevation of levels of transaminase and lactic acid dehydrogenase [LDH]; I87.8 Other specified disorders of veins; E78.5 Hyperlipidemia, unspecified; R73.9 Hyperglycemia, unspecified; E66.9 Obesity, unspecified; Z68.37 Body mass index [BMI] 37.0-37.9, adult; Z88.5 Allergy status to narcotic agent; Z87.891 Personal history of nicotine dependence; Z79.82 Long term (current) use of aspirin; Z79.899 Other long term (current) drug therapy; Z79.52 Long term (current) use of systemic steroids; Z80.0 Family history of malignant neoplasm of digestive organs

== ENCOUNTER 2019-11-19 10:17 | Emergency (ER) | payer OTHER ==
[~2019-11-19] VITALS: Wt 88.9 kg
[~2019-11-19 10:17] MED LIST changes: +ADV 500/50 INH; +ASPIR 8181 MG PO; +CQ10 PO; +CRESTOR10 M1 PO; +FISH OIL OMEGA1 EAC1 PO; +L-METHYL-B6-B11 EACH PO; +LEVAQUIN750 M1 PO; +MULTI-VITAMIN1 EACH PO; +OXYGEN NAS; +PREDNISONE10 MG PO; +PROAIR RESPICL90 MCG INH; +SPIRIVA18 MCG PO; +TEMAZEPAM15 M1 PO
[2019-11-19 10:42] LABS: BASO % 0.3 % (0.0-1.0); EOS # 0.9 10*3/uL (0.0-0.4); HEMATOCRIT 44.8 % (42.0-52.0); LYMPH # 2.1 10*3/uL (1.3-4.4); LYMPH % 15.6 % (27.0-41.0); MEAN CELL VOLUME 90.1 fl (80.0-94.0); MEAN CORPUSCULAR HGB 28.6 pg (27.0-31.0); MEAN CORPUSCULAR HGB CONC 31.7 g/dl (33.0-37.0); MEAN PLATELET VOLUME 12.3 fl (9.6-12.3); MONO # 1.3 10*3/uL (0.1-1.0); MONO % 9.7 % (3.0-9.0); NEUT % 67.1 % (47.0-73.0); PLATELET COUNT AUTOMATED 221 10*3/uL (130-400); RED BLOOD COUNT 4.97 10*6/uL (4.50-5.90); RED CELL DISTRI WIDTH 13.8 % (0-14.5); WHITE BLOOD COUNT 13.5 10*3/uL (4.8-10.8)
[2019-11-19 10:52] LABS: ACT PARTIAL THROMBO TIME 29.1 SECONDS (20.0-32.1); INTERNATIONAL NORM RATIO 1.1 (2.0-3.5)
[2019-11-19 10:56] LABS: ALBUMIN 3.3 gm/dl (3.1-4.5); ALKALINE PHOSPHATASE 119 U/L (45-117); BUN 11 mg/dl (7-24); CHLORIDE 106 mmol/L (98-107); CREATININE 0.75 mg/dL (0.70-1.30); LIPASE 70 U/L (73-393); POTASSIUM 3.9 mmol/L (3.5-5.1); SGOT/AST 25 IU/L (3-35); SGPT/ALT 27 U/L (12-78); SODIUM 136 mmol/L (136-145); TOTAL PROTEIN 7.6 gm/dL (6.4-8.2); TROPONIN I < 0.015 ng/ml (<0.045)
== END 2019-11-19 12:01 | disposition short-term general hospital (02) ==
LOC: ED 10:17
PROVIDERS: Emergency Medicine
DX: I63.9 Cerebral infarction, unspecified (principal); G93.89 Other specified disorders of brain; Z88.8 Allergy status to other drugs, medicaments and biological substances; Z79.899 Other long term (current) drug therapy